=== PATIENT | female | born 2000 | race Two or more races ===

== ENCOUNTER → 2024-01-01 | Outpatient (CLI) | payer BC, SELFPAY | LOC: M PLAIMG 14:20 | PROVIDERS: ATTEND Internal Medicine Cardiovascular Disease | DX: R94.31 Abnormal electrocardiogram [ECG] [EKG] (principal); R55 Syncope and collapse ==

== ENCOUNTER → 2024-02-10 | Outpatient (REF) | payer BC, OTHER ==
[2024-02-10 14:24] LABS: PERCENT SATURATION 36.6 % (13.2-45.0)
[2024-02-10 14:28] LABS: FERRITIN 14.5 NG/ML (7.3-270.7)
[2024-02-10 14:30] LABS: CORTISOL AM 15.2 UG/DL (4.3-22.4); FOLATE 7.91 NG/ML (>5.4)
== END ==
LOC: M LAB REF 12:44
PROVIDERS: ATTEND Nurse Practitioner Family
DX: R53.83 Other fatigue (principal); R55 Syncope and collapse